=== PATIENT | female | born 1985 | race Caucasian/White ===

== ENCOUNTER 2019-07-13 00:31 | Emergency (ER) | payer OTHER ==
[2019-07-13] MEDS ORDERED: predniSONE 20 MG TAB ONE (01:23)
== END 2019-07-13 01:26 | disposition home or self-care (01) ==
LOC: MADERS 00:31
DX: M54.18 Radiculopathy, sacral and sacrococcygeal region (principal); D64.9 Anemia, unspecified; G43.909 Migraine, unspecified, not intractable, without status migrainosus; F41.9 Anxiety disorder, unspecified; F17.210 Nicotine dependence, cigarettes, uncomplicated; Z79.899 Other long term (current) drug therapy
CPT/HCPCS: 99283; J7512